=== PATIENT | female | born 1965 | race Caucasian/White ===

== ENCOUNTER 2021-03-17 06:20 | Day surgery (SDC) | payer MEDICAID, SELFPAY ==
[~2021-03-17] VITALS: Ht 157.5 cm; Wt 73.5 kg
[2021-03-17] MEDS ORDERED: MIDAZOLAM HCL 5 MG/5 ML VIAL ONE ×2 (07:02→09:03)
[2021-03-17] MEDS ORDERED: SIMETHICONE 40 MG/0.6 ML ML ONE (07:02)
[2021-03-17] MEDS ORDERED: MEPERIDINE 100 MG INJ. 100 MG/ML VIAL ONE (07:02)
[2021-03-17 15:09] VITALS: BP_SYST 96
== END 2021-03-17 10:10 | disposition home or self-care (01) ==
LOC: SMU 06:20 → SDS 06:20
PROVIDERS: ATTEND Internal Medicine Gastroenterology
DX: R10.31 Right lower quadrant pain (principal); D12.8 Benign neoplasm of rectum; K57.30 Diverticulosis of large intestine without perforation or abscess without bleeding; K29.70 Gastritis, unspecified, without bleeding; K44.9 Diaphragmatic hernia without obstruction or gangrene; Z79.899 Other long term (current) drug therapy; Z20.822 Contact with and (suspected) exposure to COVID-19
CPT/HCPCS: 36415; 43239; 45380; 45385; 87081; 88305; 88312; 88313; 99152; 99153; G0378; J2175; J2250; U0003